=== PATIENT | male | born 1960 | race Caucasian/White ===

== ENCOUNTER 2018-10-23 11:11 | Emergency (ER) | payer OTHER ==
[~2018-10-23] VITALS: Ht 177.8 cm; Wt 77.0 kg
[2018-10-23 11:19] VITALS: BP 121/67
--- NOTE | 2018-10-23 12:44 | NUR ---
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
[2018-10-23 13:01] LABS: MEAN CORPUSCULAR HEMOGLOBIN 30.3 pg (27.5-34.5); MEAN CORPUSCULAR HGB CONC 33.8 g/dL (33.2-36.2); MEAN CORPUSCULAR VOLUME 89.8 fL (81-97); MEAN PLATELET VOLUME 9.7 fL (7.4-10.4); PLATELET COUNT 77 x10^3/uL (130-400); RED BLOOD COUNT 5.21 x10^6/uL (4.38-5.82); RED CELL DISTRIBUTION WIDTH 15.8 % (9.4-14.8)
[2018-10-23 13:02] LABS: ALBUMIN 3.6 g/dL (3.4-5.0); ANION GAP 6 mmol/L (5-15); CALCIUM 8.9 mg/dL (8.5-10.1); CHLORIDE 111 mmol/L (98-107)
[2018-10-23 13:03] LABS: BASOPHILS # (AUTO) 0.02 x10^3/uL (0-0.1); BASOPHILS % (AUTO) 0 % (0-1); EOSINOPHILS # (AUTO) 0.16 x10^3/uL (0-0.4); EOSINOPHILS % (AUTO) 3 % (1-7); LYMPHOCYTES # (AUTO) 1.39 x10^3/uL (1-3.4); LYMPHOCYTES % (AUTO) 27 % (22-44); MD SCAN; MONOCYTES # (AUTO) 0.63 x10^3/uL (0.2-0.8); MONOCYTES % (AUTO) 12 % (2-9); NEUTROPHILS # (AUTO) 3.01 x10^3/uL (1.8-6.8); NEUTROPHILS % (AUTO) 58 % (42-75)
[2018-10-23 13:06] LABS: ALANINE AMINOTRANSFERASE 37 U/L (12-78); ALKALINE PHOSPHATASE 106 U/L (45-117); BILIRUBIN,TOTAL 1.5 mg/dL (0.2-1.0); CREATININE 0.75 mg/dL (0.7-1.3); TOTAL PROTEIN 7.6 g/dL (6.4-8.2)
--- NOTE | 2018-10-23 13:06 | NUR ---
EKG AT THE BEDSIDE
--- NOTE | 2018-10-23 13:12 | NUR ---
PT IS RESTING [id number] ON AN E.R. GURNEY. VS ARE STABLE, AND WDL. I WILL MONITOR AND TREAT ORDERED, WELL PRN.
--- NOTE | 2018-10-23 13:13 | NUR ---
MD IS AT THE BEDSIDE FOR ASSESSMENT
[2018-10-23 13:23] LABS: INTERNATIONAL NORMALIZED RATIO 1.21 (0.93-1.1); PROTHROMBIN TIME 12.6 Seconds (9.6-11.5)
== END 2018-10-23 15:05 | disposition home or self-care (01) ==
LOC: ED 13:41
DX: K92.1 Melena (principal)
CPT/HCPCS: 36415; 80053; 85025; 85610; 85730; 93005; 99284